=== PATIENT | female | born 1960 | race Caucasian/White ===

== ENCOUNTER 2021-10-26 10:14 | Observation (INO) ==
[2021-10-26] MEDS ORDERED: NS 0.9% 1000 ml BAG 1,000 ML IV ONE (10:22)
[2021-10-26 10:42] LABS: ABS Basophils 0.1 10^3/ul (0-0.2); ABS Eosinophils 0.3 10^3/ul (0-0.6); ABS Lymphocytes 2.3 10^3/ul (1.0-4.8); ABS Monocytes 0.5 10^3/ul (0-0.8); ABS Neutrophils 3.4 10^3/ul (1.5-7.7); Hematocrit 46 % (35-47); Hemoglobin 15.3 g/dL (12.0-16.0); Lymphocyte % 35.6 %; Mean Corpuscular HGB Conc 34 g/dL (31-36); Mean Corpuscular Hemoglobin 31 pg (27-31); Mean Corpuscular Volume 91 fL (80-97); Mean Platelet Volume 7.9 fL (7.4-10.4); Platelet Count 259 10^3/uL (150-450); Red Blood Count 5.02 10^6 /uL (3.70-4.87); Red Cell Distribution Width 15 % (10-15); White Blood Count 6.5 10^3/uL (3.5-10.8)
[2021-10-26] MEDS ORDERED: Iohexol 350 (CONTRAST) 500 ML MDV IV ONE (10:43)
[2021-10-26 10:50] LABS: Activated Partial Thrombo Time 35.7 seconds (26.0-38.0); INR 1.02 (0.86-1.15)
[2021-10-26 11:31] LABS: Albumin 4.1 g/dL (3.2-5.2); Albumin/Globulin Ratio 1.3 (1-3); Calcium 9.6 mg/dL (8.6-10.3); Globulin 3.2 g/dL (2-4); HDL Cholesterol 50.1 mg/dL; Potassium 4.4 mmol/L (3.5-5.0); Total Bilirubin 0.4 mg/dL (0.2-1.0); Total Protein 7.3 g/dL (6.4-8.9); eGFR CKD-EPI 90.9 (>60)
[2021-10-26] MEDS ORDERED: Labetalol IV 5 MG/ML 20 ml VIAL IV PUSH PRN (11:58)
[2021-10-26 12:09] LABS: High Sensitivity Troponin 1 Hr < 3 pg/mL (<15)
[2021-10-26] MEDS: Enoxaparin 40 MG/0.4 ML SYR SUBCUT SCH (12:17)
[2021-10-27 11:45] VITALS: BP 143/77
[2021-10-27] MEDS: Enoxaparin 40 MG/0.4 ML SYR SUBCUT SCH (13:42)
== END 2021-10-27 15:54 | disposition home or self-care (01) ==
LOC: EDHOLD 10:14 → ED 10:14 → EDHOLD 13:53 → MEDTELE 13:59
PROVIDERS: ADMIT Internal Medicine; ATTEND Internal Medicine